=== PATIENT | male | born 1960 | race African-American/Black ===

== ENCOUNTER → 2019-01-03 | Outpatient (CLI) | payer OTHER ==
--- NOTE | 2019-01-03 10:04 | Diagnostic Imaging Report ---
EXAMINATION: SP LUMBAR, COMPLETE MIN 4VW INDICATION: Back pain COMPARISON: None FINDINGS: AP, lateral, and oblique images of the lumbar spine were obtained. No acute fracture. Vertebral body heights are maintained. Alignment is anatomic. Mild multilevel degenerative changes most notably at L4-5 and L5-S1 where there is mild disc space narrowing and small osteophyte formation. IMPRESSION: No compression fracture. Mild multilevel degenerative changes. Signed by: Jany Ornelas MD on 01/03/2019 10:01 AM
== END ==
LOC: RAD 09:06
PROVIDERS: ATTEND Family Medicine
DX: M54.5 Low back pain (principal)
CPT/HCPCS: 72110